=== PATIENT | female | born 1970 | race Caucasian/White ===

== ENCOUNTER 2019-07-25 08:16 | Observation (INO) | payer OTHER ==
--- OUTSIDE RECORDS SUMMARY | 2019-07-25 08:18 | XMS REPORT ---
:1970 [facility] Address [address] [place] [address] Dr. Wooten. [address] [place] [id number] Care Team Providers Name Role Phone Unavailable Unavailable Unavailable Problems This patient has no known problems. Allergies, Adverse Reactions, Alerts This patient has no known allergies or adverse reactions. Medications This patient has no known medications.
[2019-07-25] MEDS ORDERED: FENTANYL CITR 100 MCG/2 ML ONE ×2 (08:49→10:32)
[2019-07-25] MEDS ORDERED: NITROGLYCERIN 0.4 MG/TAB SL ONE (09:03)
[2019-07-25 09:04] LABS: Protime INR 1.24
[2019-07-25] MEDS ORDERED: ONDANSETRON 4 MG/2 ML VIAL ONE ×2 (09:04→10:32)
[2019-07-25 09:09] LABS: Absolute Lymphocytes (CBC) 3.8 K/uL (0.7-4.9); Basophils % 1.5 % (0-1.3); Hematocrit 41.7 % (36.0-45.0); Lymphocytes % 27.8 % (15.3-44.8); RBC Red Blood Cell Count 4.72 M/uL (3.86-4.86)
[2019-07-25 09:20] LABS: ALT/SGPT 26 U/L (12-78); AST/SGOT 23 U/L (15-37); Albumin 3.1 g/dL (3.4-5.0); Alkaline Phosphatase 71 U/L (45-117); BUN Blood Urea Nitrogen 30 mg/dL (7-18); Bicarbonate 17 mmol/L (21-32); Bilirubin Direct 0.2 mg/dL (0-0.2); Bilirubin Total 0.4 mg/dL (0.2-1.0); Glucose Level 199 mg/dL (74-106); Magnesium 1.9 mg/dL (1.8-2.4); NT PRO-BNP 229 pg/mL (<125); Potassium 4.2 mmol/L (3.5-5.1); Protein, Total 7.2 g/dL (6.4-8.2); Sodium Level 141 mmol/L (136-145); Troponin (Emerg Dept Use Only) < 0.02 ng/mL (0.0-0.045)
--- NOTE | 2019-07-25 10:43 | EDPHYS ---
Physician Documentation [facility] Name: Rosaura Wong Age: 49 yrs Sex: Female : 1970 Arrival Date: 07/25/2019 Time: 08:20 Bed 4 Private MD: ED Physician Joe Ybarra HPI: 07/25 08:26 This 49 yrs old Female presents to ER via EMS with complaints of Chest Pain. kdr 08:26 The patient or guardian reports chest pain that is located primarily in the anterior kdr chest wall, left. Onset: suddenly, at 07:00. The pain does not radiate. Associated signs and symptoms: Pertinent positives: diaphoresis, nausea, shortness of breath, Pertinent negatives: abdominal pain, cough, lower extremity pain, lower extremity swelling, lightheadedness, near syncope, palpitations. The chest pain is described as dull, a pressure, squeezing. Duration: The patient or guardian reports a single episode, that is still ongoing, but improving, The patient or guardian reports multiple episodes, that wax and wane. Modifying factors: The symptoms are alleviated by nothing. the symptoms are aggravated by exertion, movement. Severity of pain: At its worst the pain was moderate severe just prior to arrival, in the emergency department the pain has improved mildly. EMS care prior to arrival includes: aspirin, nitroglycerin, x 1, supplemental oxygen. The patient has experienced similar episodes in the past, multiple times. The patient has been recently seen by a physician: in the hospital, Discharged yesterday from [facility] with similar presenting complaints. Historical: - Allergies: 08:24 cefepime; hb 08:24 Albuterol; hb 08:24 Codeine; hb 08:24 Levaquin; hb 08:24 Invanz; hb 08:24 Cipro; hb 08:24 Toradol; hb 08:24 Dilaudid; hb - Home Meds: 08:28 Omeprazole Oral [Active]; torsemide oral oral [Active]; Diamox Sequels Oral [Active]; hb levocetirizine oral oral [Active]; Metoprolol Tartrate Oral [Active]; Belsomra oral oral [Active]; Reglan Oral [Active]; Trazodone Oral [Active]; Isosorbide Dinitrate Oral [Active]; Eliquis oral oral [Active]; duloxetine oral oral [Active]; rosuvastatin 5 mg oral tab [Active]; Lovaza oral oral [Active]; Ranitidine Oral [Active]; clopidogrel oral oral [Active]; fenofibrate oral oral [Active]; amlodipine oral [Active]; Novolog 100 unit/mL Sub-Q soln [Active]; - PMHx: 08:28 Hypertension; Hyperlipidemia; Myocardial infarction; hb - PSHx: 08:28 Heart stents; hb - Immunization history:: Adult Immunizations up to date. - Coronavirus screen:: The patient has NOT traveled to [place] in the past 14 days. The patient has NOT had contact with known/suspected case of Coronavirus? Proceed with normal triage procedures. - Social history:: Smoking status: Patient denies any tobacco usage or history of. - Ebola Screening: : No symptoms or risks identified at this time. ROS: 08:26 Constitutional: Negative for fever, chills, and weight loss, Eyes: Negative for injury, kdr pain, redness, and discharge, ENT: Negative for injury, pain, and discharge, Neck: Negative for injury, pain, and swelling, Abdomen/GI: Negative for abdominal pain, nausea, vomiting, diarrhea, and constipation, Back: Negative for injury and pain, : Negative for injury, bleeding, discharge, and swelling, MS/Extremity: Negative for injury and deformity, Skin: Negative for injury, rash, and discoloration, Neuro: Negative for headache, weakness, numbness, tingling, and seizure activity. Psych: Negative for depression, anxiety, suicide ideation, homicidal ideation, and hallucinations, Allergy/Immunology: Negative for hives, rash, and allergies, Endocrine: Negative for neck swelling, polydipsia, polyuria, polyphagia, and marked weight changes, Hematologic/Lymphatic: Negative for swollen nodes, abnormal bleeding, and unusual bruising. 08:26 Cardiovascular: Positive for chest pain, of the anterior aspect of left upper chest and left breast. 08:26 Respiratory: Positive for dyspnea on exertion, shortness of breath, The patient states that she is chronically SOB since having the swine flu in 2008. Exam: 08:26 Constitutional: This is a well developed, well nourished patient who is awake, alert, kdr and in no acute distress. Head/Face: Normocephalic, atraumatic. Eyes: Pupils equal round and reactive to light, extra-ocular motions intact. Lids and lashes normal. Conjunctiva and sclera are non-icteric and not injected. Cornea within normal limits. Periorbital areas with no swelling, redness, or edema. Neck: Trachea midline, no thyromegaly or masses palpated, and no cervical lymphadenopathy. Supple, full range of motion without nuchal rigidity, or vertebral point tenderness. No Meningismus. Chest/axilla: Normal chest wall appearance and motion. Nontender with no deformity. No lesions are appreciated. Cardiovascular: Regular rate and rhythm with a normal S1 and S2. No gallops, murmurs, or rubs. Normal PMI, no JVD. No pulse deficits. Respiratory: Lungs have equal breath sounds bilaterally, clear to auscultation and percussion. No rales, rhonchi or wheezes noted. No increased work of breathing, no retractions or nasal flaring. Abdomen/GI: Soft, non-tender, with normal bowel sounds. No distension or tympany. No guarding or rebound. No evidence of tenderness throughout. Back: No spinal tenderness. No costovertebral tenderness. Full range of motion. Skin: Warm, dry with normal turgor. Normal color with no rashes, no lesions, and no evidence of cellulitis. MS/ Extremity: Pulses equal, no cyanosis. Neurovascular intact. Full, normal range of motion. Neuro: Awake and alert, GCS 15, oriented to person, place, time, and situation. Cranial nerves II-XII grossly intact. Motor strength 5/5 in all extremities. Sensory grossly intact. Cerebellar exam normal. Normal gait. Psych: Awake, alert, with orientation to person, place and time. Behavior, mood, and affect are within normal limits. Vital Signs: 08:28 BP 132 / 95; Pulse 87; Resp 15; Temp 97.4; Pulse Ox 96% ; Weight 117.93 kg; Height 5 hb ft. 6 in. (167.64 cm); Pain 8/10; 09:31 BP 129 / 83; Pulse 82; Resp 27; Pulse Ox 99% ; bp 10:34 BP 117 / 65; Pulse 80; Resp 18; Pulse Ox 98% ; bp 11:49 BP 103 / 66; Pulse 75; Resp 26; Pulse Ox 100% ; bp 08:28 Body Mass Index 41.96 (117.93 kg, 167.64 cm) hb MDM: 08:26 Data reviewed: vital signs, nurses notes, lab test result(s), EKG, radiologic studies. kdr 10:43 Patient medically screened. kdr 02 08:24 Order name: Basic Metabolic Panel kdr 02 08:24 Order name: CBC with Diff kdr 07/25 08:24 Order name: LFT's kdr 07/25 08:24 Order name: Magnesium kdr 07/25 08:24 Order name: NT PRO-BNP kdr 07/25 08:24 Order name: PT-INR kdr 07/25 08:24 Order name: Troponin (emerg Dept Use Only) kdr 02 09:05 Order name: Protime (+INR); Complete Time: 09:44 EDMS 02 09:10 Order name: CBC with Automated Diff; Complete Time: 09:44 EDMS 02 09:21 Order name: Basic Metabolic Panel; Complete Time: 09:44 EDMS 02 09:21 Order name: Liver (Hepatic) Function; Complete Time: 09:44 EDMS 02 09:21 Order name: Troponin (Emerg Dept Use Only); Complete Time: 09:44 EDMS 02/12 09:21 Order name: NT PRO-BNP; Complete Time: 09:44 EDMS 02/12 09:21 Order name: Magnesium; Complete Time: 09:44 EDMS 02/12 08:24 Order name: XRAY Chest (1 view) kdr 07/25 08:24 Order name: EKG; Complete Time: 08:28 kdr 07/25 08:24 Order name: Cardiac monitoring; Complete Time: 08:32 kdr 07/25 08:24 Order name: EKG - Nurse/Tech; Complete Time: 08:32 kdr 07/25 08:24 Order name: IV Saline Lock; Complete Time: 08:50 kdr 07/25 08:24 Order name: Labs collected and sent; Complete Time: 08:50 kdr 07/25 08:25 Order name: O2 Per Protocol; Complete Time: 08:32 kdr 07/25 08:25 Order name: O2 Sat Monitoring; Complete Time: 08:32 kdr 07/25 11:35 Order name: RAD EDMS EC:26 Rate is 87 beats/min. Rhythm is regular, Normal Sinus Rhythm with No ectopy. QRS [place] kdr is Normal. AR interval is normal. QRS interval is normal. QT interval is normal. No Q waves. Clinical impression: NSR w/ Non-specific ST/T Changes. Administered Medications: 08:45 Drug: fentaNYL (PF) 50 mcg Route: IVP; Site: Port-a-cath; bp 09:15 Follow up: Response: No adverse reaction hb 09:01 Drug: Zofran 4 mg Route: IVP; Site: Port-a-cath; bp 09:30 Follow up: Response: No adverse reaction hb 09:02 Drug: Nitroglycerin 0.4 mg Route: Sublingual; bp 09:51 Drug: Nitroglycerin 0.4 mg Route: Sublingual; hb 11:53 Follow up: Response: Pain is decreased bp 10:33 Drug: Zofran 4 mg Route: IVP; Site: Port-a-cath; hb 11:51 Follow up: Response: Nausea is decreased bp 10:34 Drug: fentaNYL (PF) 50 mcg Route: IVP; Site: Port-a-cath; hb 11:52 Follow up: Response: Pain is decreased bp Disposition: 07/25/19 10:43 Hospitalization ordered by Hector Haro for Observation. Preliminary diagnosis is Chest pain, unspecified. - Bed requested for Telemetry/MedSurg (observation). - Status is Observation. iw - Condition is Fair. - Problem is an acute exacerbation. - Symptoms have improved. Signatures: Dispatcher [employer] [facility] Enedelia Souza RN RN dw Rittger, Kevin, MD MD [facility] Nicole Stevens RN RN Angie Galarza RN RN Josef Blood RN RN bp Corrections: (The following items were deleted from the chart) 11:32 10:43 Hospitalization Ordered by Hector Haro DO for Observation. Preliminary dw diagnosis is Chest pain, unspecified. Bed requested for Telemetry/MedSurg (observation). Status is Observation. Condition is Fair. Problem is an acute exacerbation. Symptoms have improved. kdr 12:01 11:32 07/25/2019 10:43 Hospitalization Ordered by Hector Haro DO for Observation. iw Preliminary diagnosis is Chest pain, unspecified. Bed requested for Telemetry/MedSurg (observation). Status is Observation. Condition is Fair. Problem is an acute exacerbation. Symptoms have improved. dw
--- NOTE | 2019-07-25 10:43 | ER ---
Nurse's Notes [facility] Name: Rosaura Wong Age: 49 yrs Sex: Female : 1970 Arrival Date: 07/25/2019 Time: 08:20 Bed 4 Private MD: Diagnosis: Chest pain, unspecified Presentation: 07/25 08:20 Presenting complaint: EMS states: Left sided chest pain 8/10 that started while at work hb this morning at 0700, pain does not radiate. Hx of ME with stent placement, report pain is similar to previous ME. NSR on 12 lead, ASA x 4 and Nitro x 1 administered DIRECTOR [employer]IENT [employer]. Transition of care: patient was not received from another setting of care. Onset of symptoms was July 25, 2019 at 07:00. Risk Assessment: Do you want to hurt yourself or someone else? Patient reports no desire to harm self or others. Initial Sepsis Screen: Does the patient meet any 2 criteria? No. Patient's initial sepsis screen is negative. Does the patient have a suspected source of infection? No. Patient's initial sepsis screen is negative. Care prior to arrival: Medication(s) given: ASA, 81 mg, x 4, Nitroglycerin, 0.4 mg SL x 1. 08:20 Method Of Arrival: EMS: [facility] hb 08:20 Acuity: RANDELL 3 hb Triage Assessment: 08:29 General: Appears in no apparent distress. Behavior is calm, cooperative. Pain: Pain hb currently is 8 out of 10 on a pain scale. EENT: No signs and/or symptoms were reported regarding the EENT system. Neuro: Level of Consciousness is awake, alert, obeys commands, Oriented to person, place, time, situation. Cardiovascular: Heart tones S1 S2 present Capillary refill < 3 seconds Patient's skin is warm and dry. Respiratory: Airway is patent Respiratory effort is even, unlabored, Respiratory pattern is regular, symmetrical, Breath sounds are clear bilaterally. GI: No signs and/or symptoms were reported involving the gastrointestinal system. : No signs and/or symptoms were reported regarding the genitourinary system. Derm: Skin is pink, warm \T\ dry. Musculoskeletal: No signs and/or symptoms reported regarding the musculoskeletal system. Historical: - Allergies: 08:24 cefepime; hb 08:24 Albuterol; hb 08:24 Codeine; hb 08:24 Levaquin; hb 08:24 Invanz; hb 08:24 Cipro; hb 08:24 Toradol; hb 08:24 Dilaudid; hb - Home Meds: 08:28 Omeprazole Oral [Active]; torsemide oral oral [Active]; Diamox Sequels Oral [Active]; hb levocetirizine oral oral [Active]; Metoprolol Tartrate Oral [Active]; Belsomra oral oral [Active]; Reglan Oral [Active]; Trazodone Oral [Active]; Isosorbide Dinitrate Oral [Active]; Eliquis oral oral [Active]; duloxetine oral oral [Active]; rosuvastatin 5 mg oral tab [Active]; Lovaza oral oral [Active]; Ranitidine Oral [Active]; clopidogrel oral oral [Active]; fenofibrate oral oral [Active]; amlodipine oral [Active]; Novolog 100 unit/mL Sub-Q soln [Active]; - PMHx: 08:28 Hypertension; Hyperlipidemia; Myocardial infarction; hb - PSHx: 08:28 Heart stents; hb - Immunization history:: Adult Immunizations up to date. - Coronavirus screen:: The patient has NOT traveled to [place] in the past 14 days. The patient has NOT had contact with known/suspected case of Coronavirus? Proceed with normal triage procedures. - Social history:: Smoking status: Patient denies any tobacco usage or history of. - Ebola Screening: : No symptoms or risks identified at this time. Screenin:30 Abuse screen: Denies threats or abuse. Denies injuries from another. Nutritional hb screening: No deficits noted. Tuberculosis screening: No symptoms or risk factors identified. Fall Risk None identified. Assessment: 08:30 General: SEE TRIAGE. hb 09:31 Reassessment: LAB RESULTS PENDING FOR CARDIOLOGY C/S, DR MATSON [facility]. bp 10:32 Reassessment: Pt c/o left sided chest pain 12/20, Dr. Ybarra notified at bedside, hb repeat fentanyl administered as ordered. 10:34 Reassessment: PER TRANSFER [facility], [facility] UNAVAILABLE FOR TRANSFER. PT TBA DR PULIDO.bp Vital Signs: 08:28 BP 132 / 95; Pulse 87; Resp 15; Temp 97.4; Pulse Ox 96% ; Weight 117.93 kg; Height 5 hb ft. 6 in. (167.64 cm); Pain 8/10; 09:31 BP 129 / 83; Pulse 82; Resp 27; Pulse Ox 99% ; bp 10:34 BP 117 / 65; Pulse 80; Resp 18; Pulse Ox 98% ; bp 11:49 BP 103 / 66; Pulse 75; Resp 26; Pulse Ox 100% ; bp 08:28 Body Mass Index 41.96 (117.93 kg, 167.64 cm) hb ED Course: 08:20 Patient arrived in ED. hb 08:22 Triage completed. hb 08:24 Joe Ybarra MD is Attending Physician. kdr 08:28 Arm band placed on. hb 08:30 Patient has correct armband on for positive identification. Placed in gown. Bed in low hb position. Call light in reach. Side rails up X 1. relief driller on. Pulse ox on. NIBP on. 08:30 Patient maintains SpO2 saturation greater than 95% on room air. hb 08:42 X-ray completed. Portable x-ray completed in exam room. Patient tolerated procedure jb2 well. 08:45 Accessed Port-a-Cath. using accessed w/ # 20 Wheeler needle, Clean \T\ dry. Dressing bp intact. Good blood return. Flushes easily. 08:48 Josef Blood, CHUCKY is Primary Nurse. bp 10:42 Hector Pulido DO is Hospitalizing Provider. kdr 11:50 No provider procedures requiring assistance completed. Patient admitted, IV remains in bp place. Administered Medications: 08:45 Drug: fentaNYL (PF) 50 mcg Route: IVP; Site: Port-a-cath; bp 09:15 Follow up: Response: No adverse reaction hb 09:01 Drug: Zofran 4 mg Route: IVP; Site: Port-a-cath; bp 09:30 Follow up: Response: No adverse reaction hb 09:02 Drug: Nitroglycerin 0.4 mg Route: Sublingual; bp 09:51 Drug: Nitroglycerin 0.4 mg Route: Sublingual; hb 11:53 Follow up: Response: Pain is decreased bp 10:33 Drug: Zofran 4 mg Route: IVP; Site: Port-a-cath; hb 11:51 Follow up: Response: Nausea is decreased bp 10:34 Drug: fentaNYL (PF) 50 mcg Route: IVP; Site: Port-a-cath; hb 11:52 Follow up: Response: Pain is decreased bp Outcome: 10:43 Decision to Hospitalize by Provider. kdr 11:48 Admitted to Tele accompanied by tech, family with patient, via wheelchair, room 412, bp with chart, Report called to HAL LOCKE 11:48 Condition: stable 11:48 Instructed on the need for admit. 12:01 Patient left the ED. iw Signatures: Joe Ybarra MD MD [facility] Nicole Stveens, RN RN Angie Galarza, RN RN Josef Blood RN RN bp
--- NOTE | 2019-07-25 11:17 | P.HP ---
Certification for Inpatient Patient admitted to: Observation With expected LOS: <2 Midnights Patient will require the following post-hospital care: None Practitioner: I am a practitioner with admitting privileges, knowledge of patient current condition, hospital course, and medical plan of care. Services: Services provided to patient in accordance with Admission requirements found in Title 42 Section 412.3 of the Code of Federal Regulations Patient History Date of Service: 07/25/19 Primary Care Provider: Dr. Valente([facility]); Card-Dr. Catherine; PulCarmen; Nephro- Dr. March Reason for admission: Chest pain History of Present Illness: 49-year-old female with multiple medical problems including diabetes, CAD, hypertension, hyperlipidemia, asthma, chronic renal disease. Patient presented with chest pain this morning. This occurred when she woke up. It is mainly to the left side. It was a squeezing like sensation. Her chest pain did not improve. She was able to take some nitroglycerin with improvement. No radiation pain noted. Some shortness of breath, nausea noted. She denied any vomiting. She came to the ER for further evaluation. In the ER patient evaluated. EKG shows no significant EKG changes. Troponin unremarkable. White count 13.8, hemoglobin 13. Platelet count 495. Sodium 141, potassium 4.2, BUN of 30, creatinine 2.01 with a GFR of 27. Glucose 194. BNP 229. Chest x-ray unremarkable. Patient has all her specialist at [facility]. She requested to be transferred. The ER physician tried to transfer but no bed available. ER was able to speak to her merchandising consultant. Her merchandising consultant recommends that the patient be admitted to the hospital and re-initiate transfer so that she can be sent to [facility] for further evaluation as the patient may require further evaluation. Apparently she is on a waiting list to be transferred. When I saw the patient ER, she appeared stable. No chest pain noted at this time. Daughter at bedside. Patient reports history of H1N1 flu in 2008. At that time she developed acute respiratory distress syndrome. She required intubation and trach. She was eventually weaned off. Because of this she has had multiple medical problems related to heart, lungs, and kidneys. Allergies ciprofloxacin [From Cipro] Allergy (Verified 01/27/17 15:54) Rash clarithromycin [From Biaxin] Allergy (Verified 01/27/17 15:54) Itching/Hives/Rash ertapenem [From Invanz] Allergy (Verified 01/27/17 15:54) Itching/Hives/Rash hydromorphone [From Dilaudid] Allergy (Verified 01/27/17 15:54) Itching/Hives/Rash ketorolac [From Toradol] Allergy (Verified 01/27/17 15:54) Itching/Hives/Rash levofloxacin [From Levaquin] Allergy (Verified 01/27/17 15:54) Rash naproxen Allergy (Verified 01/27/17 15:54) Itching albuterol Adverse Reaction (Verified 01/27/17 15:54) heart racing, irregular HR cefepime Adverse Reaction (Verified 01/27/17 15:54) kidney failure Home medications list reviewed: Yes Home Medications: Apixaban [Eliquis *] 2.5 mg PO BID 11/25/16 Docosahexanoic AC/Epa [Fish Oil 1,000 MG*] 1,000 mg PO BID 11/25/16 Dulaglutide [Trulicity] 1.25 mg SQ EVERY 7TH DAY 11/25/16 Insulin Glargine,Hum.rec.anlog [Basaglar Kwikpen U-100] 60 unit SQ DAILY Levocetirizine Dihydrochloride [Xyzal] 5 mg PO DAILY 11/25/16 Metformin HCl [Glucophage*] 500 mg PO BIDWM 11/25/16 Omeprazole [Prilosec] 40 mg PO DAILY 11/25/16 Temazepam [Restoril] 30 mg PO DAILY 11/25/16 acetaZOLAMIDE [Diamox*] 500 mg PO DAILY 11/25/16 atenoloL [Tenormin*] 25 mg PO DAILY AFTER SUPPER 11/25/16 - Past Medical/Surgical History Diabetic: Yes -: Diabetes mellitus type 2 insulin dependent -: Hypertension -: CAD with prior stents -: Chronic renal disease stage II -: Asthma -: Depression -: GERD -: Chronic pain -: Chronic anti coagulation therapy -: Chronic oxygen use -: Prior stents -: Tracheostomy Psychosocial/ Personal History: Patient is - Family History Father -: Heart disease, Cancer (Bladder cancer) Mother -: Heart disease, Cancer (Colon cancer) - Social History Smoking Status: Never smoker Alcohol use: No CD- Drugs: No Caffeine use: Yes Place of Residence: Home Review of Systems General: As per HPI Eyes: Unremarkable ENT: Unremarkable Respiratory: Shortness of Breath, As per HPI Cardiovascular: Chest Pain, As per HPI Gastrointestinal: Nausea, Unremarkable Genitourinary: Unremarkable Musculoskeletal: Unremarkable Integumentary: Unremarkable Neurological: Unremarkable Lymphatics: Unremarkable Physical Examination - Physical Exam General: Alert, In no apparent distress, Oriented x3, Cooperative HEENT: Atraumatic, Normocephalic, Mucous membr. moist/pink Neck: Supple Respiratory: Clear to auscultation bilaterally, Normal air movement Cardiovascular: Normal pulses, Regular rate/rhythm Gastrointestinal: Normal bowel sounds, Soft and benign, Non-distended, No ascites, No tenderness, No masses, No rebound, No guarding Musculoskeletal: No erythema, No tenderness, No warmth Integumentary: No tenderness/swelling, No erythema, No warmth, No cyanosis Neurological: Normal speech, Normal strength at 5/5 x4 extr, Normal tone, Normal affect - Studies Laboratory Data (last 24 hrs) 07/25/19 08:46: PT 14.5 H, INR 1.24 07/25/19 08:46: WBC 13.8 H, Hgb 13.0, Hct 41.7, Plt Count 495 H 07/25/19 08:46: Sodium 141, Potassium 4.2, BUN 30 H, Creatinine 2.01 H, Glucose 199 H, Magnesium 1.9, Total Bilirubin 0.4, AST 23, ALT 26, Alkaline Phosphatase 71 Assessment and Plan - Plan Impression: Chest pain with prior history of CAD with multiple stents Chronic diastolic CHF Hypertension Hyperlipidemia Diabetes mellitus type 2 insulin-dependent Asthma Chronic renal disease stage 2 Chronic pain Chronic respiratory disease on home oxygen Chronic anti coagulation therapy likely with history of atrial fibrillation Depression Plan: Chest pain with prior history of CAD with multiple stents: Patient we admitted for further evaluation and observation. Will re-initiate transfer process as her merchandising consultant recommended that she be transferred once the bed is available. She is not currently on the waiting list. Patient will likely require further cardiac evaluation. Will continue monitor telemetry and cardiac enzymes. Will continue her home medications including metoprolol, isosorbide dinitrate, Eliquis, Crestor, fish oil, Plavix, and Norvasc. Anticipate transfer once bed is available to [facility]. This is for continuity purposes and likely for further evaluation. Chronic diastolic CHF: Continue with 1500 cc per day fluid restriction. Continue Diamox. Will monitor closely. Patient also takes Demadex as needed. Hypertension: Continue Norvasc and metoprolol. Hyperlipidemia: Continue with Crestor, fish oil, fenofibrate. Will check fasting lipid panel. Diabetes mellitus type 2 insulin-dependent: Continue to monitor Accu-Cheks. Will place on sliding scale. Asthma: Will continue with Perforomist twice daily. Will continue with Xopenex and Atrovent as needed. Patient uses home oxygen. Patient sees pulmonology at [facility].. Chronic renal disease stage 2: Will continue with 1500 cc per day fluid restriction. Will need to renally dosed medications. Patient sees Nephrology at [facility]. Chronic pain: Continue with home medication hydrocodone. Chronic respiratory disease on home oxygen: Continue with oxygen. Patient sees pulmonology at [facility]. Chronic anti coagulation therapy likely with history of atrial fibrillation: Patient takes Eliquis. Will continue the medication. Likely with history of atrial fibrillation. Cardiology to further evaluate. Patient be transferred to her merchandising consultant at [facility]. Depression: Continue with Cymbalta. Discharge Plan: Transfer Plan to discharge in: 24 Hours - Advance Directives Does patient have a Living Will: No Does patient have a Durable POA for Healthcare: Yes - Code Status/Comfort Care Code Status Assessed: Yes (Patient is full code) Time Spent Managing Pts Care (In Minutes): 55
--- NOTE | 2019-07-25 11:34 | RAD REPORT ---
EXAM DESCRIPTION: RAD - Chest Single View - 07/25/2019 8:45 am CLINICAL HISTORY: CHEST PAIN COMPARISON: Chest Pa And Lat (2 Views) dated 04/18/2019 TECHNIQUE: AP portable chest image was obtained 07/25/2019 8:45 am . FINDINGS: Lung volumes are low. No peripheral mass or consolidation. Interstitial pattern is promine nt but not clearly different from April 2019. A right-sided Port-A-Cath has been placed during the interval. Trachea is midline. Heart and vasculature are normal. No measurable pleural effusion and n o pneumothorax. No acute bony abnormality seen. No acute aortic findings suspected. IMPRESSION: Low lung volume exam with no acute cardiopulmonary finding.
[2019-07-25] MEDS ORDERED: ACETAMINOPHEN 500 MG TAB PO PRN (11:46)
[2019-07-25] MEDS ORDERED: INSULIN -REGULAR HUMAN 50 UNIT/0.5 ML ML SQ SCH (11:46)
[2019-07-25] MEDS ORDERED: METOCLOPRAMIDE 10 MG/2mL INJ IV PRN (11:46)
[2019-07-25] MEDS ORDERED: IPRATROPIUM BROM 0.5MG/2.5ML NEB PRN ×2 (11:46→16:00)
[2019-07-25] MEDS ORDERED: LEVALBUTEROL 0.63 MG/3 ML NEB NEB PRN (11:46)
[2019-07-25] MEDS ORDERED: HYDROCODONE/APAP 10/325 TAB PO PRN (11:46)
[2019-07-25] MEDS ORDERED: TRAZODONE 50 MG TABLET PO PRN (11:46)
[2019-07-25] MEDS ORDERED: ISOSORBIDE DINIT 20 MG TAB PO SCH (14:00)
[2019-07-25 14:37] VITALS: O2SAT 98
--- NOTE | 2019-07-25 15:32 | P.DS ---
Admission Date: 07/25/19 Discharge Date: 07/25/19 Primary Care Provider: Dr. Valente([facility]); [place]-Dr. Catherine; Pulyeni-Gene; Nephro- Dr. March Disposition: TRANSFER TO [facility] Discharge Condition: GOOD Reason for Admission: Chest pain Consultations: none Procedures: Medical problem list: Chest pain with prior history of CAD with multiple stents Chronic diastolic CHF Hypertension Hyperlipidemia Diabetes mellitus type 2 insulin-dependent Asthma Chronic renal disease stage 2 Chronic pain Chronic respiratory disease on home oxygen Chronic anti coagulation therapy likely with history of atrial fibrillation Depression Brief History of Present Illness: 49-year-old female with multiple medical problems including diabetes, CAD, hypertension, hyperlipidemia, asthma, chronic renal disease. Patient presented with chest pain this morning. This occurred when she woke up. It is mainly to the left side. It was a squeezing like sensation. Her chest pain did not improve. She was able to take some nitroglycerin with improvement. No radiation pain noted. Some shortness of breath, nausea noted. She denied any vomiting. She came to the ER for further evaluation. In the ER patient evaluated. EKG shows no significant EKG changes. Troponin unremarkable. White count 13.8, hemoglobin 13. Platelet count 495. Sodium 141, potassium 4.2, BUN of 30, creatinine 2.01 with a GFR of 27. Glucose 194. BNP 229. Chest x-ray unremarkable. Patient has all her specialist at [facility]. She requested to be transferred. The ER physician tried to transfer but no bed available. ER was able to speak to her welder fitter helper. Her welder fitter helper recommends that the patient be admitted to the hospital and re-initiate transfer so that she can be sent to [facility] for further evaluation as the patient may require further evaluation. Apparently she is on a waiting list to be transferred. When I saw the patient ER, she appeared stable. No chest pain noted at this time. Daughter at bedside. Patient reports history of H1N1 flu in 2008. At that time she developed acute respiratory distress syndrome. She required intubation and trach. She was eventually weaned off. Because of this she has had multiple medical problems related to heart, lungs, and kidneys. Hospital Course: Patient presented with chest pain with prior history of CAD with multiple stents. Patient was evaluated and admitted for observation. Her welder fitter helper monitor to be transferred to [facility] for further evaluation. There was no bed available initially. The patient was admitted awaiting bed placement. Patient has been improving accepted to go to [facility] for further evaluation. Patient will continue with her current medications of metoprolol, isosorbide, Eliquis, Crestor, fish oil, Plavix and Norvasc. Further evaluation of chest pain can be done by her welder fitter helper at [facility]. Other conditions include chronic diastolic CHF, hypertension, hyperlipidemia, diabetes mellitus type 2 insulin dependent, asthma, chronic renal disease stage II, chronic pain, chronic respiratory disease on chronic oxygen, chronic atrial fibrillation likely with history of atrial fibrillation, and depression. This can be further monitored and addressed by her multiple specialists at [facility]. Patient stable for transfer this time. Vital Signs/Physical Exam: Temp Pulse Resp BP Pulse Ox 97.4 F 84 21 H 134/71 100 07/25/19 11:46 07/25/19 11:46 07/25/19 11:46 07/25/19 11:46 07/25/19 11:46 General: Alert, In no apparent distress, Oriented x3, Cooperative HEENT: Atraumatic Neck: Supple Respiratory: Clear to auscultation bilaterally, Normal air movement Cardiovascular: Normal pulses, Regular rate/rhythm Gastrointestinal: Normal bowel sounds Neurological: Normal speech, Normal strength at 5/5 x4 extr, Normal tone Laboratory Data at Discharge: WBC 13.8 K/uL (4.3-10.9) H 07/25/19 08:46 Hgb 13.0 g/dL (12.0-15.0) 07/25/19 08:46 Hct 41.7 % (36.0-45.0) 07/25/19 08:46 Plt Count 495 K/uL (152-406) H 07/25/19 08:46 PT 14.5 SECONDS (9.5-12.5) H 07/25/19 08:46 INR 1.24 07/25/19 08:46 Sodium 141 mmol/L (136-145) 07/25/19 08:46 Potassium 4.2 mmol/L (3.5-5.1) 07/25/19 08:46 BUN 30 mg/dL (7-18) H 07/25/19 08:46 Creatinine 2.01 mg/dL (0.55-1.3) H 07/25/19 08:46 Glucose 199 mg/dL (74-106) H 07/25/19 08:46 Magnesium 1.9 mg/dL (1.8-2.4) 07/25/19 08:46 Total Bilirubin 0.4 mg/dL (0.2-1.0) 07/25/19 08:46 AST 23 U/L (15-37) 07/25/19 08:46 ALT 26 U/L (12-78) 07/25/19 08:46 Alkaline Phosphatase 71 U/L (45-117) 07/25/19 08:46 Home Medications: Apixaban [Eliquis *] 5 mg PO BID 11/25/16 Docosahexanoic AC/Epa [Fish Oil 1,000 MG*] 1,000 mg PO BID 11/25/16 Insulin Glargine,Hum.rec.anlog [Basaglar Kwikpen U-100] 50 unit SQ BID 11/25/16 Levocetirizine Dihydrochloride [Xyzal] 5 mg PO DAILY 11/25/16 Omeprazole [Prilosec] 40 mg PO BID 11/25/16 Temazepam [Restoril] 30 mg PO DAILY 11/25/16 acetaZOLAMIDE [Diamox*] 250 mg PO DAILY 11/25/16 Insulin -Regular Human [Novolin -R*] 25 unit SQ AC 07/25/19 Insulin -Regular Human [Novolin -R] See Protocol IV ACHS 07/25/19 Isosorbide Dinitrate 20 mg PO TID 07/25/19 Metoprolol Tartrate [Lopressor*] 12.5 mg PO BID 07/25/19 Torsemide 10 mg PO DAILY PRN 07/25/19 Patient Discharge Instructions: Patient be transferred to [facility] to be further evaluated by her multiple specialists including Cardiology. Diet: AHA Activity: Ad shea Time spent managing pt's care (in minutes): 55
[2019-07-25 15:47] VITALS: BMI 43.2
[2019-07-25 16:16] VITALS: BP 111/53; TEMP 97.2
[2019-07-25] MEDS ORDERED: FENOFIBRATE 160 MG TAB PO SCH (17:00)
[2019-07-25] MEDS ORDERED: METOPROLOL TAR 25 MG TAB PO SCH (18:00)
[2019-07-25] MEDS ORDERED: ARFORMOTEROL TARTRATE 15 MCG/2 ML VIAL.NEB NEB SCH (20:00)
[2019-07-25] MEDS ORDERED: ROSUVASTATIN 10 MG TAB PO SCH (21:00)
[2019-07-25] MEDS ORDERED: APIXABAN 5 MG TABLET PO SCH (21:00)
[2019-07-25] MEDS ORDERED: DULOXETINE 30 MG CAP PO SCH (21:00)
[2019-07-25] MEDS ORDERED: AMLODIPINE 2.5 MG TAB PO SCH (21:00)
[2019-07-26] MEDS ORDERED: PANTOPRAZOLE 40MG TABLET PO SCH (06:30)
[2019-07-26] MEDS ORDERED: DOCOSAHEXANOIC AC/EPA 1000 MG PO SCH (09:00)
[2019-07-26] MEDS ORDERED: acetaZOLAMIDE 250 MG TAB PO SCH (09:00)
[2019-07-26] MEDS ORDERED: CLOPIDOGREL 75 MG TABLET PO SCH (09:00)
--- NOTE | 2019-07-26 09:24 | EKG ---
Test Date: 2019-07-25 Test Time: 08:22:47 Pilot Plant Operator: CROW MEASUREMENT RESULTS: Intervals: Rate: 87 DE: 178 QRSD: 90 QT: 388 QTc: 466 Lipscomb: P: -9 DE: 178 QRS: 2 T: 68 INTERPRETIVE STATEMENTS: Normal sinus rhythm Possible Anterior infarct, age undetermined Abnormal ECG No previous ECG available for comparison Electronically Signed On 07-26-19 09:22:56 RAILROAD CAR REPAIRMAN by Vitaly Fairbanks
== END 2019-07-25 16:35 | disposition short-term general hospital (02) ==
LOC: ER 08:16 → ERHOLD 10:57 → 4TH 11:49
PROVIDERS: ADMIT Family Medicine; ATTEND Family Medicine
DX: R07.9 Chest pain, unspecified (principal); I25.10 Atherosclerotic heart disease of native coronary artery without angina pectoris; I13.0 Hypertensive heart and chronic kidney disease with heart failure and stage 1 through stage 4 chronic kidney disease, or unspecified chronic kidney disease; E11.22 Type 2 diabetes mellitus with diabetic chronic kidney disease; N18.2 Chronic kidney disease, stage 2 (mild); I50.32 Chronic diastolic (congestive) heart failure; E78.5 Hyperlipidemia, unspecified; J45.909 Unspecified asthma, uncomplicated; J98.9 Respiratory disorder, unspecified; Z99.81 Dependence on supplemental oxygen; Z79.01 Long term (current) use of anticoagulants; F32.9 Major depressive disorder, single episode, unspecified; Z95.5 Presence of coronary angioplasty implant and graft
CPT/HCPCS: 93005; 85025; 80048; 36415; 83735; 85610; 80076; 84484; 83880; 71045; 96375; 96374; 99285; J3010 ×2; J2405 ×2; G0378 ×2